=== PATIENT | male | born 1945 | race African-American/Black ===

== ENCOUNTER 2018-12-12 10:57 | Inpatient (IN) ==
--- NOTE | 2018-12-12 11:34 | EKG Report ---
Test Performed on : 12/12/2018 11:20:02 AM Test Reason : TACHYCARDIA SP Blood Pressure : / mmHG Vent. Rate : 108 BPM Atrial Rate : 127 BPM P-R Int : 000 ms QRS Dur : 086 ms QT Int : 354 ms P-R-T Axes : 000 061 216 degrees QTc Int : 474 ms Atrial fibrillation. with rapid ventricular response. with a competing junctional pacemaker. Nonspecific ST and T wave abnormality Abnormal ECG No previous ECGs available Unconfirmed Result
[2018-12-12] MEDS ORDERED: ASPIRIN PR ONE (12:40)
[2018-12-12] MEDS ORDERED: ASPIRIN PO ONE (12:40)
[2018-12-12 13:17] LABS: INR 1.08; PROTIME 14.9 Seconds (11.0-16.0)
[2018-12-12 13:18] LABS: PTT 23.1 Seconds (22.3-41.8)
--- NOTE | 2018-12-12 13:24 | Diag Imaging Result Doc PS360 ---
EXAM: CHEST-2 VIEWS HISTORY: SOB TECHNIQUE: Two views COMPARISON: 12/05/2018 FINDINGS: The lungs are well expanded. The heart is not enlarged. The vessels are not distended. There are no infiltrates. No pleural effusions. IMPRESSION: No acute abnormality. Electronically signed by Gil Thurston 12/12/2018 1:21 PM
[2018-12-12 13:43] LABS: ALB/GLOB RATIO 1.1; ALBUMIN 3.7 g/dL (3.5-5.0); CALCIUM 9.3 mg/dL (8.8-10.2); CREATININE 4.5 mg/dL (0.7-1.2); POTASSIUM 4.2 mmol/L (3.5-5.1); TOTAL BILIRUBIN 1.24 mg/dL (0.20-1.00)
[2018-12-12 14:03] LABS: BASO# 0.02 X1000 (0.0-0.2); BASO% 0.2 % (0.0-0.8); EOS# 0.02 X1000 (0.0-0.7); EOS% 0.2 % (0.0-10.0); HEMATOCRIT 28.7 % (42.0-52.0); HEMOGLOBIN 9.4 g/dL (14.0-18.0); IMM GRAN# 0.03 X1000 (0.0-0.04); IMM GRAN% 0.3 % (0.0-0.5); LYMPH# 1.39 X1000 (1.2-3.4); LYMPH% 12.6 % (20.5-51.1); MCH 30.1 PG (27-31); MCHC 32.8 g/dL (33-37); MONO# 0.83 X1000 (0.11-0.59); MONO% 7.5 % (1.7-9.3); MPV 10.4 FL (7.4-10.4); NEUT# 8.72 X1000 (1.4-6.5); NEUT% 79.2 % (42.2-75.2); PLT 234 X1000 (130-400); RBC 3.12 XMIL (4.7-6.1); RDW 13.6 % (11.5-14.5); WBC 11.01 X1000 (4.8-10.8)
[2018-12-12] MEDS ORDERED: NS 1,000 ML IV ONE (15:46)
--- NOTE | 2018-12-12 15:53 | PROVIDER DOCUMENTATION ---
This chart was entered by Saniya Cosme Scribe, acting as scribe for Deandre Wong MD. HPI-General Adult - General Chief Complaint: Weakness Stated Complaint: WEAKNESS Time Seen by Provider: 12/12/18 11:22 Source: patient Allergies/Adverse Reactions: Patient Allergies Allergy/AdvReac Type Severity Reaction Status Date / Time No Known Allergies Allergy Verified 12/05/18 12:45 - History of Present Illness -Gen Adult Nature of Presenting Problems: Patient is a 73 year old male who presents with weakness, chills, dark urine and frequent falls. Patient denies nausea and vomiting. Denies history of A fib. Location of Pain/Injury: reports: none Pain Radiation: reports: no radiation Quality of Pain: reports: none Severity: reports: mild Onset/Duration: reports: gradual Timing: reports: still present, getting worse Associated Symptoms: reports: fever/chills (chills), genitourinary problems (dark urine), weakness Similar Symptoms Previously?: Yes Recently seen or treated by another doctor?: Yes Review of Systems - Adult - REVIEW OF SYSTEMS - ADULT Constitutional: reports: see HPI, chills. denies: fever, fatique Eyes: reports: no symptoms reported Ears, Nose, Mouth & Throat: reports: no symptoms reported Cardiovascular: reports: no symptoms reported Respiratory: reports: no symptoms reported Gastrointestinal: reports: no symptoms reported Genitourinary: reports: see HPI, other (dark urine). denies: dysuria, incontinence Musculoskeletal: reports: see HPI, muscle weakness. denies: back pain, neck pain Integumentary: reports: no symptoms reported Neurological: reports: no symptoms reported Psychiatric: reports: no symptoms reported Endocrine: reports: no symptoms reported Hematologic/Lymphatic: reports: no symptoms reported Allergic/Immunologic: reports: no symptoms reported All Other Systems: Reviewed and Negative Past History - Adult - PAST MEDICAL HISTORY-ADULT Review of Records: reports: Old Records Reviewed, Nursing Assessment Review, Medications Reviewed, Social history reviewed & non-contributory. Major Childhood Illnesses: reports: denies history Cardiovascular: reports: HTN Respiratory: reports: denies history Gastrointestinal: reports: denies history Obstetrical/Gynecological: reports: denies history Genitourinary: reports: kidney disease Musculoskeletal: reports: arthritis Neurological: reports: denies history Endocrine/Immune: reports: denies history Other Conditions: reports: denies history - PRIOR SURGERIES/PROCEDURES Surgical/Procedure History: reports: reviewed, not pertinent - IMMUNIZATION STATUS Childhood Immunizations: See Nurse Assessment Flu Vaccine: See Nurse Assessment - FAMILY HISTORY Family History: reviewed, not pertinent - SOCIAL HISTORY Smoking: cigarettes (former) Substance Use: alcohol Alcohol Use Frequency: occasionally Physical Exam-General - PHYSICAL EXAM-ADULT Initial Vital Signs Reviewed: Yes - CONSTITUTIONAL General Appearance: alert, no apparent distress, cachetic, other (ill appearing. smells of urine.) - HEAD, EARS, NOSE, MOUTH & THROAT HENMT: normocephalic/atraumatic, other (dry mucous membranes). negative: angioedema, hearing deficit - RESPIRATORY Respiratory: chest non-tender, lungs clear, normal breath sounds. negative: crackles, rhonchi, wheezing - CARDIOVASCULAR Cardiovascular: normal peripheral pulses, irregularly irregular. negative: tachycardia - GASTROINTESTINAL (ABDOMEN) Abdominal Exam: normal bowel sounds, non tender, soft. negative: guarding, rebound - MUSCULOSKELETAL Extremity: non-tender, normal inspection. negative: deformity, erythema, swelling - SKIN Integumentary: normal color, other (poor turgor.). negative: abrasion(s), ecchymosis, erythema, jaundice, rash - NEUROLOGIC Neurologic: grossly normal. negative: aphasia, facial droop - PSYCHIATRIC Psych/Mental Status: normal mood/affect, oriented x 3. negative: anxious Progress - PLAN OF CARE/RESULTS Progress/Plan/Lab Results: Vital Signs - 8 hr 12/12/18 11:01 12/12/18 11:08 12/12/18 11:10 Temperature 97.5 F L Pulse Rate 136 H 75 Respiratory Rate 19 Blood Pressure 111/64 125/84 O2 Sat by Pulse Oximetry 100 88 L 12/12/18 11:13 12/12/18 11:20 12/12/18 11:30 Temperature Pulse Rate 132 H 111 H 85 Respiratory Rate 22 18 23 Blood Pressure 141/98 O2 Sat by Pulse Oximetry 83 L 88 L 100 12/12/18 11:40 12/12/18 11:50 12/12/18 12:00 Temperature Pulse Rate 74 72 66 Respiratory Rate 19 19 18 Blood Pressure O2 Sat by Pulse Oximetry 100 99 100 Laboratory Results - last 24 hr 12/12/18 11:00 POC Glucose 170 H Orders Category Date Time Status EKG [EKG] Stat Ther 12/12/18 11:13 Draft Result Diagrams: 12/12/18 13:54 12/12/18 12:27 - REASSESSMENT Reassessment #1 Time Reassessed: 15:51 Status: other (patient's head CT is pending.) Reassessment #2 Time Reassessed: 15:51 Status: improving (Given IVF) - EKG 1 Time of EKG reading by physician:: 11:20 EKG Read and Signed by:: Deandre Wong EKG Interpretation (*Must complete 3 of following elements*): Abnormal (rhythm - atrial fibrillation with rapid ventricular response with a competing junctional pacemaker) Rate: 108 Rhythm: nsr [place]: normal Comments: nonspecific ST and T wave abnormality. - XRAY 1 XRAY Study: Chest Impression: See EMR Report ( EXAM: CHEST-2 VIEWS HISTORY: SOB TECHNIQUE: Two views COMPARISON: 12/05/2018 FINDINGS: The lungs are well expanded. The heart is not enlarged. The vessels are not distended. There are no infiltrates. No pleural effusions. IMPRESSION: No acute abnormality. Electronically si gned by Gil Thurston 12/12/2018 1:21 PM 12/12/18 1321 Interpreting Physician: Gil Thurston MD Dictated Date/Time: 12/12/18 1321 cc: Deandre Wong MD; Karthik Chao MD) - CONSULTS/PCP/HOSPITALIST Notification #1 *Consult/PCP/Hospitalist*: Dr. Hinton Time Discussed: 15:46 Reason/Comments: Dr. Wong consulted with Dr. Hinton about patient. Consult Disposition: other (Dr. Hinton states give the patient fluids and he will see the patient in the morning.) #2 Consult: JESSICA Marrufo for Hospitalist Time Discussed: 15:50 (Dr. Muniz accepted admit) Reason/Comments: Dr. Wong consulted with Niru about patient. Consult Disposition: Will see in ED, Admit Departure - Departure Date of Disposition Decision: 12/12/18 Time of Disposition Decision: 15:51 DIAGNOSIS: Dehydration syndrome, Frequent falls Acute on chronic renal failure Qualifiers: Acute renal failure type: with acute tubular necrosis Chronic kidney disease stage: stage 3 (moderate) Qualified Code(s): N17.0 - Acute kidney failure with tubular necrosis; N18.3 - Chronic kidney disease, stage 3 (moderate) Disposition: ADMITTED INPATIENT 09 Certified Medical Emergency: Emergent Condition: Serious Referrals and Follow-Ups: Karthik Chao MD [Primary Care Provider] - - Critical Care Note This patient required my direct & personal management of CC.: Yes Total Time (mins): 40 (cvs/renal systems in peril) Critical Care Statement: This patient required my direct personal management to treat or rule out processes, the absence of which, could potentiallly result in sudden, clinically significant life or limb threatening deterioration. Attestation - Physician/ INDERJIT Attestation Patient care was provided by Advanced Practice Provider:: No The physician spent face to face time with patient:: Yes Advanced Practice Provider documentation review:: Supervising physician onsite and consulted in the evaluation and care of this patient. The physician did have a face to face encounter with the patient. This chart was documented by the indicated scribe, (Saniya Cosme Scribe) and accurately reflects the services I performed and decisions made by me, Deandre Wong MD, as attested by the provider's signature.
[2018-12-12 15:54] LABS: ALLEN TEST YES; BE -11.5 mmoll (-3.0-3.0); BLOOD TYPE ARTERIAL; HCO3-(ACT) 15.9 mmoll (20.0-26.0); METHB 1.4 % (0.0-1.5); O2(CT) 18.4 mL/dL (15.0-23.0); O2HB 96.2 % (95.0-99.0); PCO2(98.6) 27 mmHg (35-45); PO2(98.6) 102 mmHg (60-100); SAMPLE BLOOD; SAO2 99.2 % (95.0-100.0); THB 13.5 g/dL (11.5-17.4)
[2018-12-12 16:01] LABS: MODALITY ROOM AIR
[2018-12-12 16:07] LABS: URINE SOURCE CLEAN CATCH
[2018-12-12 16:12] LABS: BILIRUBIN URINE NEGATIVE (NEGATIVE); BLOOD URINE NEGATIVE (NEGATIVE); COLOR YELLOW; GLUCOSE URINE TRACE mg/dL (NEGATIVE); KETONE URINE NEGATIVE (NEGATIVE); PH URINE 5.5; PROTEIN URINE 30 mg/dL (NEGATIVE); SP GRAVITY URINE 1.012; TURBIDITY URINE CLEAR (CLEAR)
[2018-12-12 16:13] LABS: LEUKOCYTES URINE NEGATIVE (NEGATIVE); NITRITE URINE NEGATIVE (NEGATIVE); UROBILINOGEN URINE NORMAL (NORMAL)
[2018-12-12 16:16] LABS: UR EPITHELIAL CELLS <10 /HPF (<10); URINE BACTERIA NEGATIVE /HPF; URINE RBC <10 /HPF (<10); URINE WBC <10 /HPF (<10)
[2018-12-12 16:24] LABS: UR AMPHETAMINES QUAL NONE DETECTED (NONE DETECT); UR BARBITUATES QUAL NONE DETECTED (NONE DETECT); UR BENZODIAZEPIN QUAL NONE DETECTED (NONE DETECT); UR CANNABINOIDS QUAL NONE DETECTED (NONE DETECT); UR COCAINE QUAL NONE DETECTED (NONE DETECT); UR METHADONE QUAL NONE DETECTED (NONE DETECT); UR OPIATES QUAL NONE DETECTED (NONE DETECT); UR OXYCODONE QUAL NONE DETECTED (NONE DETECT); UR PCP QUAL NONE DETECTED (NONE DETECT)
[2018-12-12 16:39] LABS: MAGNESIUM 3.1 mg/dL (1.5-2.7); PHOSPHORUS 5.9 mg/dL (2.7-4.5)
[2018-12-12 16:44] LABS: HEMOGLOBIN A1C 5.6 % (4.8-6.0)
--- NOTE | 2018-12-12 17:03 | Diag Imaging Result Doc PS360 ---
EXAM: CT HEAD W/O CONTRAST HISTORY: ams TECHNIQUE: CT head without contrast COMPARISON: None. FINDINGS: No parenchymal hemorrhage. No epidural or subdural hematoma. No subarachnoid hemorrhage. Mild atrophy. No mass identified on this noncontrasted exam. No hydrocephalus. No sinus opacification. IMPRESSION: 1.No hemorrhage 2.Mild atrophy This exam was performed using automated exposure control, adjustment of mA or kV according to patient size, and/or use of iterative reconstruction technique. Electronically signed by Gil Thurston 12/12/2018 5:01 PM
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
[2018-12-12] MEDS ORDERED: ZOFRAN IV PRN (17:16)
[2018-12-12] MEDS ORDERED: TYLENOL PO PRN (17:16)
[2018-12-12] MEDS ORDERED: SODIUM CHLORIDE 0.9% INJ PRN (17:16)
[2018-12-12 17:58] LABS: HEMATOCRIT 26.8 % (42.0-52.0); HEMOGLOBIN 8.9 g/dL (14.0-18.0)
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
[2018-12-12] MEDS ORDERED: BENADRYL IV PRN (21:08)
[2018-12-12] MEDS: PROTONIX IV SCH (21:46)
[2018-12-13 01:03] LABS: HEMATOCRIT 27.2 % (42.0-52.0)
[2018-12-13 07:22] LABS: BASO# 0.02 X1000 (0.0-0.2); BASO% 0.2 % (0.0-0.8); EOS# 0.15 X1000 (0.0-0.7); EOS% 1.7 % (0.0-10.0); HEMOGLOBIN 9.7 g/dL (14.0-18.0); IMM GRAN# 0.03 X1000 (0.0-0.04); IMM GRAN% 0.3 % (0.0-0.5); LYMPH# 1.54 X1000 (1.2-3.4); LYMPH% 17.3 % (20.5-51.1); MCHC 33.4 g/dL (33-37); MCV 92.7 FL (81-99); MONO# 0.68 X1000 (0.11-0.59); MONO% 7.6 % (1.7-9.3); MPV 11.1 FL (7.4-10.4); NEUT# 6.48 X1000 (1.4-6.5); NEUT% 72.9 % (42.2-75.2); PLT 233 X1000 (130-400); RBC 3.13 XMIL (4.7-6.1); RDW 13.7 % (11.5-14.5)
[2018-12-13 07:50] LABS: ALBUMIN 3.6 g/dL (3.5-5.0); CALCIUM 9.7 mg/dL (8.8-10.2); CREATININE 4.2 mg/dL (0.7-1.2); POTASSIUM 3.7 mmol/L (3.5-5.1); TOTAL BILIRUBIN 1.17 mg/dL (0.20-1.00); TOTAL PROTEIN 7.3 g/dL (6.3-8.3)
[2018-12-13] MEDS: PROTONIX IV SCH ×2 (08:41→20:45)
[2018-12-13] MEDS ORDERED: 1/2 NS 1,000 ML IV SCH (11:00)
[2018-12-13] MEDS: LOPRESSOR PO SCH ×2 (11:11→20:43)
[2018-12-13] MEDS ORDERED: D5 IV SCH (12:30)
[2018-12-13] MEDS ORDERED: 1/2 NS IV SCH (12:30)
[2018-12-13] MEDS ORDERED: SODIUM BICARBONATE IV SCH (12:30)
[2018-12-13] MEDS: SODIUM BICARBONATE 8.4% 100 MEQ in D5W 1,000 ML IV SCH (12:44)
--- NOTE | 2018-12-13 14:37 | PROGRESS NOTE ---
DATE: 12/13/2018 INTERVAL HISTORY: Patient received intravenous fluid resuscitation. He has not had a bowel movement. He continues to have poor kidney function. His hemoglobin was stable. SUBJECTIVE: The patient is feeling significantly weak. He has been taking ibuprofen 3 tablets 3 times a day for last 2 weeks because of his osteoarthritis and has noticed melena of about 2 weeks duration. 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 He has had EGD and colonoscopies in the past which were unremarkable and he was supposed to get repeat endoscopies 10 years later. We discussed about exam findings possibly NSAID induced kidney injury as well as GI bleed. Answered all of his questions. His family is at bedside. CURRENTLY VITALS: Temperature 98.6 degrees, pulse 92, respiratory 16, blood pressure 158/58, saturating 100% room air. PHYSICAL EXAMINATION: Appears cachectic. Oral cavity is dry. Air entry bilaterally equal. No wheeze, rhonchi, crackles. S1, S2 normal. No murmur, rub, or gallop. Bedside monitor has normal sinus rhythm with heart rate in 90s. Abdomen is soft, nontender. No lower extremity edema. He appears tremulous both upper and lower extremities. He does mention about 30-40 pound weight loss over 3 to 4 months. LABS: Suggestive of stable hemoglobin at 10.7, stable platelet count, hypernatremia, hyperchloremia, low bicarbonate, elevated BUN and creatinine with baseline unclear and transaminitis with slight improvement. No new microbiological data. IMAGING: Chest, abdomen, pelvis CT had sternal fracture without any injury identification without any retroperitoneal hematoma. ASSESSMENT AND PLAN: 1. 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 Continue intravenous Protonix. Follow up fecal occult blood test if he has a bowel movement and consult Gastroenterology to see if he would eventually need EGD. Continue NPO status until Gastroenterology evaluation. Monitor frequent blood count. No need of blood transfusion at the moment. 2. Elevated anion gap metabolic acidosis with hypernatremia and hyperchloremia after intravenous fluid resuscitation with CKD (baseline GFR 30). Start patient on D5 half- normal saline with 100 mEq of bicarbonate. Nephrology has been consulted. Follow up with frequent BMP and close urine output monitoring. 3. Transaminitis with improvement over 24 hours. His baseline liver function tests are not available. Continue to monitor CMP. In the future would consider hepatitis panel though he denies any recreational substance use or prior history of known hepatitis. 4. Atrial fibrillation with rapid ventricular rate on presentation. It is possible that his renal failure possibly acute and a metabolic derangement resulting from that could have triggered it. His CHADS2-VASc score is at least 3 because of age and HTN. I will start him on metoprolol and will consider anticoagulation in future currently holding off considering his suspected acute blood loss. Follow up repeat EKG. 5. Disposition. I will continue monitor his medical floor. Plan of care discussed with patient and family at bedside. All of the questions been answered. cc: Marcelino Bhandari MD MTDD
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
[2018-12-14] MEDS: SODIUM BICARBONATE 8.4% 100 MEQ in D5W 1,000 ML IV SCH ×2 (03:11→23:29)
[2018-12-14 07:18] LABS: BASO# 0.01 X1000 (0.0-0.2); BASO% 0.2 % (0.0-0.8); EOS# 0.16 X1000 (0.0-0.7); EOS% 2.5 % (0.0-10.0); HEMATOCRIT 25.9 % (42.0-52.0); HEMOGLOBIN 8.7 g/dL (14.0-18.0); IMM GRAN# 0.02 X1000 (0.0-0.04); IMM GRAN% 0.3 % (0.0-0.5); LYMPH# 1.12 X1000 (1.2-3.4); LYMPH% 17.7 % (20.5-51.1); MCH 30.5 PG (27-31); MCHC 33.6 g/dL (33-37); MCV 90.9 FL (81-99); MONO# 0.61 X1000 (0.11-0.59); MONO% 9.7 % (1.7-9.3); MPV 11.5 FL (7.4-10.4); NEUT% 69.6 % (42.2-75.2); PLT 224 X1000 (130-400); RBC 2.85 XMIL (4.7-6.1); RDW 13.1 % (11.5-14.5); WBC 6.32 X1000 (4.8-10.8)
[2018-12-14 07:21] LABS: ALB/GLOB RATIO 0.9; ALBUMIN 3.1 g/dL (3.5-5.0); CALCIUM 8.8 mg/dL (8.8-10.2); CREATININE 3.3 mg/dL (0.7-1.2); POTASSIUM 4.1 mmol/L (3.5-5.1); TOTAL BILIRUBIN 0.98 mg/dL (0.20-1.00); TOTAL PROTEIN 6.6 g/dL (6.3-8.3)
--- NOTE | 2018-12-14 09:26 | ECHO REPORT ---
ORDER DATE: 12/13/2018 SUMMARY: 1. Very difficult study for interpretation due to very limited acoustic window quality. Best views obtained from subcostal window. 2. The aortic, mitral, and tricuspid valves are without gross structural abnormality. Pulmonic valve is not seen. The aortic root is not well imaged. 3. Grossly normal left ventricular dimensions suggested. Estimated left ventricular ejection fraction appears to be at least 70%. No obvious wall motion abnormality can be appreciated. Left atrium, right atrium, and right ventricle are grossly normal in size. 4. No pericardial effusion. 5. Appearance of inferior vena cava suggests low normal central venous pressure. cc: MD Niru Gar CRNP
[2018-12-14 09:48] LABS: RETIC% 1.34 % (0.8-2.1); RETIC-HE 31.8 PG (28.2-36.6)
[2018-12-14] MEDS: PROTONIX PO SCH ×2 (10:02→21:14)
[2018-12-14] MEDS: LOPRESSOR PO SCH ×2 (10:02→21:27)
[2018-12-14 10:06] LABS: IRON SATURATION 25 %; TIBC 185 ug/dL; TOTAL IRON 46 ug/dL (53-167); UNBOUND IRON 139 ug/dL (112-346)
[2018-12-14 10:34] LABS: FERRITIN 692 ng/mL (30-400)
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
--- NOTE | 2018-12-14 12:52 | PROGRESS NOTE ---
DATE: 12/14/2018 SUBJECTIVE: Patient notes that he is feeling okay. Denies any chest pain, palpitations. Denies any current issues. PHYSICAL EXAMINATION: Vital Signs: Temperature 97.5, pulse 61, respiratory rate 18, BP 126/56. General: Patient is stable. He is awake, alert. He is pleasant to talk with. HEENT: Normocephalic. Neck: Supple. Cardiovascular: Regular rate. Chest: Clear. Abdomen: Soft, nondistended. Extremities: Moves all extremities. Neurologic: No changes. ASSESSMENT: 1. Anemia. Hemoglobin and hematocrit are stable at 8 and 25. 2. Atrial fibrillation, currently stable. 3. Acute on chronic kidney disease. The patient's renal function has actually improved slightly with a BUN and creatinine down to 132 and 3.2. Nephrology is on board. We will continue bicarb today and we will continue to assess. PLAN: Overall, the patient has improved slightly. His hemoglobin and hematocrit have remained stable. Again, discussed with patient no NSAIDs. We will recheck his labs in the a.m. Discussed with patient and attempted to answer questions. cc: Karthik Chao MD
--- NOTE | 2018-12-14 15:02 | Diag Imaging Result Doc PS360 ---
EXAM: US ABDOMEN-COMPLETE - 12/14/2018 HISTORY: abnormal LFTs TECHNIQUE: Ultrasound abdomen COMPARISON: None. FINDINGS: The liver appears diffusely echodense suggesting fatty infiltration. There is no focal liver lesion identified. The spleen is unremarkable. There is no substantial ascites seen. There are apparent small polyps in the gallbladder. The gallbladder soto otherwise do not appear thickened. There are no discrete shadowing or mobile gallstones identified. The technologist reports negative sonographic Gallego's sign. The common bile duct is normal caliber at 2 mm. The pancreas is not well-visualized, presumably due to artifacts. There are small bilateral renal cysts. There is no discrete solid renal mass, stone, or hydronephrosis identified. Visualized portions of aorta and IVC appear normal caliber. IMPRESSION: Apparent fatty infiltration of liver. No evidence of focal liver lesion. Apparent small gallbladder polyps. No discrete gallstones. Bilateral renal cysts. Electronically signed by Geovanni Brito 12/14/2018 2:59 PM
--- NOTE | 2018-12-15 07:28 | EKG Report ---
Test Performed on : 12/13/2018 12:59:14 PM Test Reason : Follow up A FIb Blood Pressure : / mmHG Vent. Rate : 097 BPM Atrial Rate : 097 BPM P-R Int : 126 ms QRS Dur : 072 ms QT Int : 370 ms P-R-T Axes : 057 059 096 degrees QTc Int : 469 ms Sinus rhythm. with occasional premature ventricular complexes. Nonspecific T wave abnormality Abnormal ECG When compared with ECG of 12-DEC-2018 11:20, (Unconfirmed) Sinus rhythm. has replaced Atrial fibrillation. ST elevation now present in Inferior leads Nonspecific T wave abnormality no longer evident in Inferior leads Confirmed by Adore MARCELINO, Hayden Contreras ([id number]) on 12/15/2018 5:05:40 PM
[2018-12-15 07:47] LABS: POTASSIUM 3.3 mmol/L (3.5-5.1)
[2018-12-15 07:48] LABS: ALBUMIN 3.2 g/dL (3.5-5.0); CALCIUM 8.9 mg/dL (8.8-10.2); CREATININE 2.7 mg/dL (0.7-1.2); PHOSPHORUS 4.3 mg/dL (2.7-4.5)
[2018-12-15 09:09] LABS: HEPATITIS PROFILE ACUTE SEE COMMENTS
[2018-12-15] MEDS ORDERED: DIPRIVAN 1% ONE ×2 (10:10→11:18)
[2018-12-15] MEDS ORDERED: XYLOCAINE-MPF 2% ONE (10:10)
[2018-12-15] MEDS ORDERED: KLOR-CON PO ONE ×2 (10:11→10:23)
--- NOTE | 2018-12-15 11:02 | NEPHROLOGY PROGRESS NOTE ---
DATE: 12/15/2018 Date Seen: 12/15/2018. Time Seen: 0625. SUBJECTIVE: Mr. Santos is resting quietly in bed. Head of the bed is slightly elevated. He states that he is feeling just a little bit better today. OBJECTIVE: Vital Signs: His last temperature 98.8 degrees, blood pressure 130/58, heart rate is 75, respirations are 14. He is currently on room air. Last recorded saturation is 100%. He has had 223 in. He has had 1475 out per void. LABORATORY DATA: Sodium 143, potassium 3.3, chloride 102, CO2 27, BUN 112, creatinine 2.7, glucose 133. Anion gap of 14, calcium 8.9, phosphorus 4.3, albumin is 3.2. Hemoglobin of 8.7 on the . Hepatitis profile panel is negative. PHYSICAL EXAMINATION: General: This is a 73-year-old male who is resting quietly in bed. He appears in no acute distress. Skin: Warm and dry. HEENT: Normocephalic, atraumatic. Conjunctiva is pale he has RADHA. Mucous membranes are dry. Neck: Supple. Trachea midline. He has trace JVD at 6 cm lukas. Cardiovascular: Regular rate and rhythm. He has an S4 present. Lungs: Clear to auscultation bilaterally. Equal excursion on room air. Abdomen: Soft nontender. Slightly distended. Positive bowel sounds. Genitourinary: Not inspected. Patient has voided adequate amounts. It has been recorded. Extremities: Have no edema. No clubbing or cyanosis. Neurological: He is in no acute distress. Alert and oriented x3. ASSESSMENT AND PLAN: 1. Acute kidney injury overlying chronic kidney disease. Patient's baseline creatinine is in the mid 2s. His creatinine is down to 2.7. BUN remains elevated at 112. At this time there is no indications for intervention. Adequate urine output is documented. We will continue to monitor and follow. 2. Electrolytes and acid-base balance. Patient has mild hypokalemia. He has been on D5 with sodium bicarbonate at 75 mL an hour. We will give him a one-time dose potassium supplement replacement and monitor in the a.m. 3. Acid-base balance this has improved. We will leave the sodium bicarbonate on for 1 more day and possibly take it off in the morning. 4. Anemia, this remains low but stable. Hemoglobin of 8.7. No indications for intervention. 5. Atrial fibrillation with rapid ventricular response. The patient is being followed by the primary care team. I would like to thank you for allowing us to follow with this patient. Dictated by JESSICA Caraballo for Idris Hinton MD Face to face encounter, data reviewed, discussed with Gayla Saucedo on 12/15/18. I agree with the above assessment and plan of care. cc: JESSICA Caraballo MD [facility]
[2018-12-15] MEDS ORDERED: FENTANYL ONE (11:35)
--- NOTE | 2018-12-15 12:14 | OPERATIVE NOTE ---
PROCEDURE DATE: 12/15/2018 TITLE OF PROCEDURES: 1. Esophagogastroscopy with cautery of the duodenal ulcer. 2. Esophagogastroduodenoscopy with dilation of the Schatzki's ring with a 42- Burkinan Rico dilator. PREOPERATIVE DIAGNOSES: 1. Gastrointestinal bleed. 2. Melena. 3. Anemia. POSTOPERATIVE DIAGNOSES: 1. Schatzki's ring at the gastroesophageal junction. 2. Z-line was at 45 cm. 3. Evidence of erythema in the gastric body and antrum. 4. Normal fundus, cardia, incisura on retroflexion. 5. Evidence of duodenitis and duodenal ulcer in the bulb measuring 1 to 2 cm. It had a visible vessel. This was treated with epinephrine 1.5 mL in different quadrants and cautery. 6. Normal second portion of the duodenum. ESTIMATED BLOOD LOSS: Minimal. COMPLICATIONS: None. ANESTHESIA: Monitored anesthesia per the anesthesiologist. SPECIMENS: None. DESCRIPTION OF PROCEDURE: After informed consent, the patient was explained the risks, benefits, indications, and alternatives to the procedure, the patient prepared for an EGD. The patient was brought to the OR. He was turned in the left lateral position. A bite block was placed. After adequate monitored anesthesia care, the upper scope was introduced was introduced through the oral orifice and traversed all the way to the second portion of the duodenum. The esophagus showed evidence of a Schatzki's ring at the gastroesophageal junction. Z-line was at 45 cm. The scope was able to pass without any resistance. Stomach showed evidence of erythema in the body and antrum suggesting gastritis. Retroflexion in the stomach revealed normal fundus, cardia, incisura. The duodenal bulb showed evidence of erythema, friability, erosions, and one ulceration in the anterior wall of the duodenal bulb. This measured about 1 to 2 cm. It had a visible vessel. We treated it with epinephrine in different quadrants, followed by cautery successfully. The second portion of the duodenum appeared normal. There was no active bleeding. At the end the procedure, the air was aspirated and scope withdrawn. The patient underwent Rico dilation to a 42-Burkinan successfully. Postdilation, repeat EGD showed successful dilation. The air was aspirated and the scope was withdrawn. The patient tolerated the procedure well and is currently monitored in the OR in stable condition. RECOMMENDATIONS: 1. The patient will be on gastroesophageal reflux life changes. 2. Patient will avoid any NSAIDs. 3. Patient will be on PPIs b.i.d. for 3 months. Start him on Carafate 1 g every 6 hours. 4. The patient will be on Iron C b.i.d. for 3 months. We will start patient on multivitamin once daily with 3 months. The patient will be started on a clear liquid diet and advance as tolerated. 5. The patient will follow up in clinic 4 weeks after discharge. 6. We will follow along. Please call us with any further questions. Thank you for allowing us to participate in the care of the patient. cc: MD Reddy Garcia MD MTDD
--- NOTE | 2018-12-15 15:12 | PROGRESS NOTE ---
DATE: 12/15/2018 SUBJECTIVE: Patient has no major complaints. OBJECTIVE: Blood pressure is 151/71, heart rate of 81, respiratory rate 18, temperature 97.9 degrees, 100% saturation on room air.Cardiovascular: Regular rate and rhythm. Pulmonary: Bilateral breath sounds clear to auscultation. GI: Soft, nontender, nondistended. Bowel sounds are positive. LABORATORY DATA: White count I do not have any new data today. Creatinine down to 2.7 with a BUN of 112. PROBLEM LIST: 1. Acute kidney injury. We will continue hydration. Nephrology is still following. He continues to have improvement in his azotemia but he still fairly azotemic. 2. Hemoglobin and hematocrit has been stable, will repeat levels tomorrow and follow. He is getting a GI workup with EGD. 3. Atrial fibrillation appears to be rate controlled. DISPOSITION: Anticipate discharge soon. Patient would like to go home soon. I just do not think he is quite ready just yet and may still be another day or 2 away but will continue to follow. cc: Reddy Gomes MD
[2018-12-15] MEDS: LOPRESSOR PO SCH ×2 (15:29→20:17)
[2018-12-15] MEDS: PROTONIX PO SCH ×2 (15:30→20:17)
[2018-12-15] MEDS: CARAFATE PO SCH ×2 (15:52→18:48)
[2018-12-15] MEDS: SODIUM BICARBONATE 8.4% 100 MEQ in D5W 1,000 ML IV SCH (16:08)
[2018-12-15] MEDS: POTASSIUM CHLORIDE 20 MEQ/SWI 20 MEQ/100 ML IVPB IV SCH ×2 (18:48→22:38)
[2018-12-15] MEDS: ICAR-C PO SCH (20:17)
[2018-12-16] MEDS: CARAFATE PO SCH ×4 (00:58→17:28)
[2018-12-16] MEDS: SODIUM BICARBONATE 8.4% 100 MEQ in D5W 1,000 ML IV SCH (02:57)
[2018-12-16 08:00] LABS: BASO# 0.01 X1000 (0.0-0.2); BASO% 0.2 % (0.0-0.8); EOS# 0.16 X1000 (0.0-0.7); EOS% 2.5 % (0.0-10.0); HEMATOCRIT 24.4 % (42.0-52.0); IMM GRAN# 0.02 X1000 (0.0-0.04); IMM GRAN% 0.3 % (0.0-0.5); LYMPH# 1.23 X1000 (1.2-3.4); LYMPH% 19.6 % (20.5-51.1); MCH 30.2 PG (27-31); MCHC 32.8 g/dL (33-37); MCV 92.1 FL (81-99); MONO# 0.91 X1000 (0.11-0.59); MONO% 14.5 % (1.7-9.3); MPV 11.4 FL (7.4-10.4); NEUT# 3.96 X1000 (1.4-6.5); NEUT% 62.9 % (42.2-75.2); PLT 200 X1000 (130-400); RBC 2.65 XMIL (4.7-6.1); RDW 12.6 % (11.5-14.5); WBC 6.29 X1000 (4.8-10.8)
[2018-12-16 08:16] LABS: ALBUMIN 2.7 g/dL (3.5-5.0); CALCIUM 8.3 mg/dL (8.8-10.2); CREATININE 2.1 mg/dL (0.7-1.2); PHOSPHORUS 3.1 mg/dL (2.7-4.5); POTASSIUM 2.8 mmol/L (3.5-5.1)
[2018-12-16] MEDS: PROTONIX PO SCH ×2 (08:41→20:22)
[2018-12-16] MEDS: ICAR-C PO SCH ×2 (08:41→20:22)
[2018-12-16] MEDS: LOPRESSOR PO SCH ×2 (08:41→20:22)
[2018-12-16] MEDS: CENTRUM SILVER PO SCH (08:41)
--- NOTE | 2018-12-16 09:22 | NEPHROLOGY PROGRESS NOTE ---
DATE: 12/16/2018 Date Seen: 12/16/2018 Time Seen: 0635 SUBJECTIVE: Mr. Santos is resting quietly in bed. He had an EGD performed yesterday. States that he is feeling a little bit better. OBJECTIVE: Vital Signs: Temperature 99.1 degrees, blood pressure 140/57, heart rate 81 respirations 14. He is on room air. Last recorded saturation 96%. He has had 600 in, 850 out to void. LABS: Sodium is 145, potassium 2.8, chloride 103, CO2 32, BUN 70, creatinine 2.1 glucose is 126. The patient has an anion gap of 10, calcium of 8.3 phosphorus 3.1, albumin of 2.7 previous hemoglobin of 8. PHYSICAL EXAMINATION: General: This is a 73-year-old male resting quietly in bed. Head of the bed is elevated. He appears in no acute distress. Skin: Warm and dry. HEENT: Normocephalic, atraumatic. Conjunctiva is pale pink. He has RADHA. Mucous membranes are dry. Neck: Supple, trachea midline. No evidence of JVD. Cardiovascular: He is regular rate and rhythm. S4 is present. Lungs: Clear to auscultation bilaterally. Equal excursion on room air. Abdomen: Soft, nontender, positive bowel sounds. Genitourinary: Not inspected. Patient has been voiding adequate amount that has been documented. Extremities: Have no edema. No clubbing or cyanosis. Neurological: He is alert and oriented x3. ASSESSMENT AND PLAN: 1. Acute kidney injury. Patient's BUN has improved to 70 with a creatinine of 2.1 down from 2.7. Adequate urine output has been documented. No indications for intervention. We will continue to monitor. 2. Electrolytes. Patient has a hypokalemia of 2.8 and an acid-base balance of 32. We will stop his sodium bicarbonate drip. We will add 40 mEq of K-Chlor today, 1 tablet BID only and re- evaluate his labs in the a.m. 3. Anemia. This remains low but stable. 4. Atrial fibrillation with rapid ventricular response. This remains improved followed by primary care. 5. Abdominal discomfort. This is followed by Dr. Cook. Patient had an EGD yesterday showing Schatzki's ring along with duodenitis. I would like to thank you for allowing us to follow with this patient. Dictated by JESSICA Caraballo for Idris Hinton MD Face to face encounter, data reviewed, discussed with Gayla Saucedo on 12/16/18. I agree with the above assessment and plan of care. cc: JESSICA Caraballo MD [facility]
[2018-12-16] MEDS: KLOR-CON PO SCH ×2 (10:34→20:22)
[2018-12-16] MEDS ORDERED: NS 1,000 ML IV ONE (15:26)
--- NOTE | 2018-12-16 15:45 | PROGRESS NOTE ---
DATE: 12/16/2018 SUBJECTIVE: Patient is doing well. No major complaints. He really wants to go home. OBJECTIVE: Vital Signs: Blood pressure is 134/51, heart rate of 79, respiratory rate of 18, temperature 97.8 degrees, satting 97% on room air. Cardiovascular: Regular rate and rhythm. Pulmonary: Bilateral breath sounds. Clear to auscultation. GI: Soft, nontender, nondistended. Bowel sounds are positive. LABORATORY DATA: Potassium 2.8, creatinine 2.1. PROBLEM LIST: 1. Acute kidney injury. I think he still needs a little bit of hydration. I do not know if it was stopped because his fluids were stopped. I do not know. I am going to give him another bag of fluids just to hydrate him up a bit. 2. Anemia that appears to be stable. We will continue to monitor. 3. He had some gastroesophageal reflux disease/gastritis. So we will continue proton pump inhibitor and follow. 4. Atrial fibrillation is stable. DISPOSITION: Anticipate discharge soon, hopefully in the next 24 hours. Continue to follow closely. cc: Reddy Gomes MD
--- NOTE | 2018-12-16 23:34 | PROVIDER PROGRESS NOTE ---
Progress Note SUBJECTIVE: No acute overnight events. Afebrile. No N/V, CP, SOB, abdominal pain, rectal bleeding, LE edema. He reports having a couple of melenic stools since yesterday. Tolerating clears OBJECTIVE: Last Vital Signs Temp 99.3 F 12/16/18 23:23 Pulse 86 12/16/18 20:00 Resp 16 12/16/18 20:00 BP 152/48 12/16/18 20:00 Pulse Ox 100 12/16/18 20:00 Height 5 ft 7 in Weight 131 lb 6.4 oz GEN: awake, alert, NAD HEENT: anicteric, MMM NECK: supple, no JVD PULM: CTAB, no wheezing CV: RRR, no murmurs ABD: soft NT/ND, NABS EXT: no cce NEURO: nonfocal LABS: 12/16/18 12/16/18 07:15 07:15 WBC 6.29 Hgb 8.0 L Plt Count 200 Sodium 145 Potassium 2.8 L D Chloride 103 Carbon Dioxide 32 BUN 70 H Creatinine 2.1 H Glucose 126 H EGD 12/15/2018 POSTOPERATIVE DIAGNOSES: 1. Schatzki's ring at the gastroesophageal junction. 2. Z-line was at 45 cm. 3. Evidence of erythema in the gastric body and antrum. 4. Normal fundus, cardia, incisura on retroflexion. 5. Evidence of duodenitis and duodenal ulcer in the bulb measuring 1 to 2 cm. It had a visible vessel. This was treated with epinephrine 1.5 mL in different quadrants and cautery. 6. Normal second portion of the duodenum. A/P: Mr. Clay Santos is a 73-year-old gentleman with hypertension and chronic kidney disease, who was admitted after having a fall, found to have acute onset anemia JUAN on CKD, AFIB with RVR in the setting of UGIB from duodenal ulcer 2/2 to NSAID use. EGD on 12/15 showed Schatzki's ring (dilated), gastritis, duodenitis, and duodenal ulcer with visible vessel treated with epinephrine and cautery. # UGIB: 2/2 bleeding duodenal ulcer - advance diet as tolerated - continue PPI PO BID for 3 months - avoid NSAIDs - no indication for repeat EGD to check for duodenal ulcer healing 2/2 to no malignancy potential # Gastritis/Duodenitis: from above # Schatzki's ring: s/p dilation; no dysphagia; repeat EGD prn # Anemia: trend H/H daily, transfuse prn for goal hgb 7-8 # Abnormal LFTs: 2/2 to fatty liver; chronic liver disease workup negative; minimize ETOH # JUAN on CKD: improved # AFIB with RVR: on admission noted # Hypokalemia: replete lytes prn Will sign off. Please call with questions. Follow-up with Dr. Barragan in 4-6 weeks.
[2018-12-17] MEDS: ICAR-C PO SCH (08:58)
[2018-12-17] MEDS: PROTONIX PO SCH (08:58)
[2018-12-17] MEDS: CENTRUM SILVER PO SCH (08:58)
[2018-12-17] MEDS: LOPRESSOR PO SCH (08:58)
--- NOTE | 2018-12-17 10:28 | NEPHROLOGY PROGRESS NOTE ---
DATE: 12/17/2018 DATE AND TIME SEEN: 12/17/2018 at 0630. SUBJECTIVE: Mr. Santos is resting quietly in bed. States that he is feeling a little bit better. Thinks he might be discharged today. OBJECTIVE: MOST RECENT VITAL SIGNS: Temperature 98.7 degrees, blood pressure 122/97, heart rate is 90, respirations 12. He is on room air, last recorded saturation is 94%. He has had 3941 in, 2225 out to void. LABORATORY DATA: These are currently pending. No results back. His potassium yesterday was 2.8 with potassium supplement x2 doses. BUN of 70 with a creatinine of 2.1, and a hemoglobin of 8 on the . PHYSICAL EXAMINATION: General: This is a 73-year-old male, resting quietly in bed. His skin is warm and dry. HEENT: Normocephalic, atraumatic. Conjunctiva is pale. He has RADHA. Mucous membranes are dry. Neck: Supple. Trachea midline. No evidence of JVD. Cardiovascular: Regular rate and rhythm. He has an S4. Lungs: Clear to auscultation bilaterally, equal excursion, on room air. Abdomen: Soft, nontender. Positive bowel sounds. Genitourinary: Not inspected. Patient has been voiding adequate amount that has been documented. Extremities: Have no edema. No clubbing or cyanosis. Neurological: Alert and oriented x3. ASSESSMENT AND PLAN: 1. Acute kidney injury on chronic kidney disease. Patient's creatinine is actually at his baseline in the 2s. No indications for further intervention. He has adequate urine output documented. We will just await labs today and continue to monitor. 2. Electrolytes. The patient had hypokalemia yesterday. Labs are currently pending this a.m. 3. Anemia. This has been low but stable. 4. Atrial fibrillation with rapid ventricular response. This is improved. Followed by primary care. 5. Abdominal discomfort. No further gastrointestinal bleed. Followed by Gastroenterology and primary care. I would like to thank you for allowing us to follow with this patient. Dictated by JESSICA Caraballo for Idris Hinton MD Face to face encounter, data reviewed, discussed with Gayla Saucedo on 12/17/18. I agree with the above assessment and plan of care. cc: JESSICA Caraballo MD [facility]
[2018-12-17 11:37] LABS: ALBUMIN 2.7 g/dL (3.5-5.0); CALCIUM 8.1 mg/dL (8.8-10.2); CREATININE 2.2 mg/dL (0.7-1.2); PHOSPHORUS 2.4 mg/dL (2.7-4.5); POTASSIUM 3.3 mmol/L (3.5-5.1)
[2018-12-17] MEDS ORDERED: SODIUM PHOSPHATE 40 MEQ in NS 250 ML IV ONE (15:01)
[2018-12-17 16:32] VITALS: BP 136/67
--- NOTE | 2018-12-18 06:57 | DISCHARGE SUMMARY ---
ADMISSION DATE: 12/12/2018 DISCHARGE DATE: 12/17/2018 SUBJECTIVE: The patient has no major complaints. OBJECTIVE: Blood pressure 116/48, heart rate of 76, respiratory rate of 16, temperature 98.9 degrees and 100% on room air. Cardiovascular: Regular rate and rhythm. Pulmonary: Bilateral breath sounds clear to auscultation. GI: Soft, nontender, and nondistended. Bowel sounds are positive. LABORATORY: White count not done today. Potassium 3.3, creatinine down to 2.2. Per Renal, that is close to his baseline. HISTORY: He was admitted for melena and a GI bleed on the . Gastroenterology was consulted. His initial hemoglobin and hematocrit was 9 and 28. His initial creatinine was 4.5, and elevated liver enzymes. He was placed on some PPI. CT was ordered which really showed nothing except the sternal fracture. Head CT is negative. His abdominal ultrasound showed small gallbladder polyps. In any case, echocardiogram was obtained. EF was 70%. Nephrology was consulted because of renal failure, and he was given fluids. He was on a bicarbonate, but I do not think he ended up getting dialysis. He was placed on Protonix. EGD was done on the which showed Schatzki's ring, duodenitis and duodenal ulcer with visible vessel. It was injected with epinephrine. Recommended PPIs, Carafate and no NSAIDs. His diet was slowly advanced. His creatinine slowly improved. He had some atrial fibrillation which also overall improved. By the , his creatinine was at baseline. Hemoglobin and hematocrit was around 8 and 24 which has not much changed, that was on the from the . He was felt stable for discharge. DISCHARGE MEDICATIONS: 1. Clonidine 0.1 b.i.d. 2. Felodipine 5 daily. 3. Lopressor 25 b.i.d. 4. Icar C daily. 5. Prilosec 40 b.i.d. for 2 months. 6. Carafate 1 g t.i.d. at bedtime for 6 weeks. FOLLOW UP: 1. PCP in 1 week for repeat CBC and basic. 2. He is to her follow up with Dr. Cook in a couple of weeks to look at biopsies. 3. Follow up with Dr. Hinton 1 to 2 weeks. Follow up on his kidneys. TIME SPENT: 32 minute discharge. Refer to Joey Chery and Mary Jane. cc: Reddy Gomes MD
== END 2018-12-17 19:33 | disposition home or self-care (01) | DRG 378 ==
LOC: EDBD → ED 10:57 → 3N 16:36 → SUATTDRO 16:36
PROVIDERS: ATTEND Internal Medicine

== ENCOUNTER 2018-12-25 13:06 | Inpatient (IN) ==
[2018-12-25 14:08] LABS: BASO# 0.02 X1000 (0.0-0.2); BASO% 0.4 % (0.0-0.8); EOS# 0.24 X1000 (0.0-0.7); EOS% 4.7 % (0.0-10.0); HEMATOCRIT 20.5 % (42.0-52.0); HEMOGLOBIN 6.6 g/dL (14.0-18.0); LYMPH# 1.16 X1000 (1.2-3.4); LYMPH% 22.6 % (20.5-51.1); MCH 30.3 PG (27-31); MCHC 32.2 g/dL (33-37); MONO# 0.86 X1000 (0.11-0.59); MONO% 16.8 % (1.7-9.3); MPV 10.2 FL (7.4-10.4); NEUT# 2.85 X1000 (1.4-6.5); NEUT% 55.5 % (42.2-75.2); PLT 274 X1000 (130-400); RBC 2.18 XMIL (4.7-6.1); RDW 12.6 % (11.5-14.5); WBC 5.13 X1000 (4.8-10.8)
[2018-12-25] MEDS: NS 1,000 ML IV SCH ×2 (14:11→21:47)
[2018-12-25 14:13] LABS: INR 1.11; PROTIME 15.2 Seconds (11.0-16.0)
[2018-12-25 14:14] LABS: PTT 31.2 Seconds (22.3-41.8)
[2018-12-25 14:35] LABS: ALB/GLOB RATIO 1.1; ALBUMIN 3.2 g/dL (3.5-5.0); CALCIUM 8.8 mg/dL (8.8-10.2); CREATININE 2.8 mg/dL (0.7-1.2); POTASSIUM 3.3 mmol/L (3.5-5.1); TOTAL BILIRUBIN 0.52 mg/dL (0.20-1.00); TOTAL PROTEIN 6.2 g/dL (6.3-8.3)
--- NOTE | 2018-12-25 16:17 | PROVIDER DOCUMENTATION ---
This chart was entered by Ying Lundberg Scribe, acting as scribe for Felipe Esquivel MD. HPI-Abdominal Pain/GI Problem - General Chief Complaint: Abnormal Lab[s] Stated Complaint: ABNORMAL LAB[S] Time Seen by Provider: 12/25/18 13:30 Source: patient, other (PCP) Allergies/Adverse Reactions: Patient Allergies Allergy/AdvReac Type Severity Reaction Status Date / Time No Known Allergies Allergy Verified 12/05/18 12:45 Home Medications: Home Medication List Medication Instructions Recorded Confirmed Last Taken Type Clonidine [Catapres] 0.1 mg PO BID 12/13/18 12/13/18 Unknown History Felodipine [Felodipine ER] 5 mg PO DAILY 12/13/18 12/13/18 Unknown History Metoprolol [Lopressor] 25 mg PO BID 12/13/18 12/13/18 Unknown History Iron Carbonyl/Ascorbic Acid 1 ea PO DAILY #30 tab 12/17/18 Unknown Rx [Icar-C] Omeprazole [Prilosec] 40 mg PO BID #60 capsule. 12/17/18 Unknown Rx Sucralfate [Carafate Liquid] 1 gm PO Q6HR #120 udc 12/17/18 Unknown Rx - History of Present Illness-ABD Nature of Presenting Problems: 73 y/o male presents to ED with hematemesis. Pt reports he has hx peptic ulcer and recent GI bleed. Pt was admitted for the bleed on 12/12/18 and had an EGD on 12/15/18. Pt states the black stools have not subsided since his prior bleed. Pt reports he takes iron supplements. Pt also complains of back pain that is worse with movement and fatigue. Pt was seen by PCP yesterday for followup from prior bleed and sent to ED today after lab results came back. PCP reports Hgb of 6.8. Pt is alert and oriented. Abdominal Pain Onset Location: reports: unknown (pt denies pain) Pain Radiation: reports: no radiation Quality of Pain: reports: none Severity in ED: reports: moderate Onset/Duration: reports: unsure Timing: reports: still present Activities at Onset: reports: none Exposure to sick contacts?: No Modifying Factors: worse with: movement Associated Symptoms: reports: back/neck pain (back), fatigue, other (hematemesis) Last BM: this morning Dark Stools Present?: reports: black Rectal Bleeding: reports: blood mixed with stool Rectal Pain: reports: none Similar Symptoms Previously?: Yes Recently seen or treated by another doctor?: Yes Review of Systems - Adult - REVIEW OF SYSTEMS - ADULT Constitutional: reports: fatique. denies: chills, fever Eyes: reports: no symptoms reported Ears, Nose, Mouth & Throat: reports: no symptoms reported Cardiovascular: denies: chest pain, palpitations Respiratory: denies: cough, shortness of breath Gastrointestinal: reports: hematemesis. denies: abdominal pain, diarrhea, nausea, vomiting Genitourinary: reports: no symptoms reported Musculoskeletal: reports: back pain. denies: joint pain Integumentary: reports: no symptoms reported Neurological: denies: dizziness/vertigo, seizure Psychiatric: reports: no symptoms reported Endocrine: reports: no symptoms reported Hematologic/Lymphatic: reports: no symptoms reported Allergic/Immunologic: reports: no symptoms reported All Other Systems: Reviewed and Negative Past History - Adult - PAST MEDICAL HISTORY-ADULT Review of Records: reports: Old Records Reviewed, Nursing Assessment Review, Medications Reviewed Major Childhood Illnesses: reports: denies history Cardiovascular: reports: HTN Gastrointestinal: reports: GI bleed, ulcer Genitourinary: reports: kidney disease Musculoskeletal: reports: arthritis - PRIOR SURGERIES/PROCEDURES Surgical/Procedure History: reports: orthopedic (extremity) (finger) - IMMUNIZATION STATUS Childhood Immunizations: See Nurse Assessment Flu Vaccine: See Nurse Assessment - FAMILY HISTORY Family History: reviewed, not pertinent - SOCIAL HISTORY Smoking: quit greater than 1 year Substance Use: none/never Alcohol Use Frequency: occasionally Living Situation: family Physical Exam-General - PHYSICAL EXAM-ADULT Initial Vital Signs Reviewed: Yes - CONSTITUTIONAL General Appearance: appears well, alert, no apparent distress - EYES Eyes: PERRL/EOMI, pink conjunctivae - HEAD, EARS, NOSE, MOUTH & THROAT HENMT: normocephalic/atraumatic, moist mucous membranes, normal ENT inspection - NECK Neck: non-tender, full range of motion - RESPIRATORY Respiratory: chest non-tender, lungs clear, normal breath sounds - CARDIOVASCULAR Cardiovascular: normal peripheral pulses, regular rate, rhythm - GASTROINTESTINAL (ABDOMEN) Abdominal Exam: normal bowel sounds, non tender, soft - GENITOURINARY Male Genitalia: deferred Rectal Exam: normal rectal tone, black stool, prostate enlarged/nodule (+1) Hemoccult Exam: heme negative stool - MUSCULOSKELETAL Back Exam: normal inspection, no CVA tenderness, no vertebral tenderness Extremity: normal range of motion, non-tender, normal gait - SKIN Integumentary: normal color, warm/dry - NEUROLOGIC Neurologic: grossly normal - PSYCHIATRIC Psych/Mental Status: normal mood/affect, normal thought content, normal thought process, oriented x 3 Progress - PLAN OF CARE/RESULTS Progress/Plan/Lab Results: Vital Signs - 8 hr 12/25/18 13:20 Temperature 97.8 F Pulse Rate 65 Respiratory Rate 16 Blood Pressure 95/58 O2 Sat by Pulse Oximetry 100 Orders Category Date Time Status CBC WITH ELECTRONIC DIFF [HEME] Stat Lab 12/25/18 13:31 Uncollected COMPREHENSIVE METABOLIC PANEL [CHEM] Stat Lab 12/25/18 13:31 Uncollected PROTIME WITH INR [COAG] Stat Lab 12/25/18 13:31 Uncollected PTT [COAG] Stat Lab 12/25/18 13:31 Uncollected TYPE & SCREEN [BBK] Stat Lab 12/25/18 13:31 Uncollected 0.9% Sodium Chloride Inj [Ns] 1,000 ml Med 12/25/18 13:45 Active IV 125 mls/hr GI Bleed (possible) Stat Oth 12/25/18 13:31 Ordered Laboratory Tests 12/25/18 12/25/18 12/25/18 13:49 13:49 13:49 WBC 5.13 RBC 2.18 L Hgb 6.6 L Hct 20.5 L MCV 94.0 MCH 30.3 MCHC 32.2 L RDW Std Deviation 12.6 Plt Count 274 MPV 10.2 Neut % (Auto) 55.5 Lymph % (Auto) 22.6 [place] % (Auto) 16.8 H Eos % (Auto) 4.7 Baso % (Auto) 0.4 Neut # (Auto) 2.85 Lymph # (Auto) 1.[address] [place] # (Auto) 0.86 H Eos # (Auto) 0.24 Baso # (Auto) 0.02 PT 15.2 INR 1.11 PTT (Actin FS) 31.2 Sodium 142 Potassium 3.3 L Chloride 105 Carbon Dioxide 23 L Anion Gap 14 BUN 36 H Creatinine 2.8 H Estimated GFR/1.73 m2 27 BUN/Creatinine Ratio 13 Glucose 99 Calculated Osmolality 291 Calcium 8.8 Total Bilirubin 0.52 AST 22 ALT 33 Alkaline Phosphatase 119 Total Protein 6.2 L Albumin 3.2 L Globulin 3.0 Albumin/Globulin Ratio 1.1 Result Diagrams: 12/25/18 13:49 12/25/18 13:49 - CONSULTS/PCP/HOSPITALIST Notification #1 *Consult/PCP/Hospitalist*: JESSICA Melara for hospitalist Time Discussed: 15:53 Reason/Comments: Recurrent GI bleed Consult Disposition: Admit Departure - Departure Date of Disposition Decision: 12/25/18 Time of Disposition Decision: 15:53 DIAGNOSIS: Recurrent gastrointestinal hemorrhage Disposition: ADMITTED INPATIENT 09 Certified Medical Emergency: Emergent Condition: Stable Referrals and Follow-Ups: Karthik Chao MD [Primary Care Provider] - - Critical Care Note This patient required my direct & personal management of CC.: No Attestation - Physician/ INDERJIT Attestation Patient care was provided by Advanced Practice Provider:: No The physician spent face to face time with patient:: Yes Advanced Practice Provider documentation review:: Supervising physician onsite and consulted in the evaluation and care of this patient. The physician did have a face to face encounter with the patient. This chart was documented by the indicated scribe, (Ying Lundberg, [place]) and accurately reflects the services I performed and decisions made by me, Lucy Esquivel MD, as attested by the provider's signature.
[2018-12-25] MEDS ORDERED: TYLENOL PO PRN (16:33)
[2018-12-25] MEDS ORDERED: ZOFRAN IV PRN (16:33)
[2018-12-25] MEDS: NEXIUM IV SCH (16:53)
[2018-12-25] MEDS: SODIUM CHLORIDE 0.9% INJ SCH (16:54)
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
--- NOTE | 2018-12-25 17:58 | Diag Imaging Result Doc PS360 ---
EXAM: CHEST-2 VIEWS 12/25/2018 HISTORY: sob TECHNIQUE: AP upright and lateral chest COMMENT: There is no evidence of acute cardiac or pulmonary disease. The lungs are better expanded than they were on 12/12/2018. IMPRESSION: No acute disease. Electronically signed by Mann Hernández 12/25/2018 5:56 PM
--- NOTE | 2018-12-25 18:53 | Diag Imaging Result Doc PS360 ---
EXAM: CT ABDOMEN/PELVIS W/O CONTRAST 12/25/2018 HISTORY: gib TECHNIQUE: This exam was performed using automated exposure control, adjustment of mA or kV according to patient size, and/or use of iterative reconstruction technique. COMMENT: The current examination is compared with the previous study of 12/12/2018. There is minimal atelectasis in the costophrenic sulci posteriorly which was not the case on the previous study. There is a small amount of pleural fluid bilaterally. This was also not present previously. There is perinephric stranding bilaterally. There are what appear to be hyperdense cysts on both sides. The perinephric stranding is worse but otherwise the appearance of the kidneys has not changed significantly. There is fluid in the right paracolic gutter. This was not present previously. The small bowel is not distended. There is diverticulosis, particularly in the left colon. The appendix is normal in appearance. The urinary bladder is unremarkable. There is some stool in the rectum. There is fluid in the rectovesical pouch. There is disc bulge and spinal stenosis at the L4-5 level. No evidence of acute bony abnormality is present. IMPRESSION: 1. Small pleural effusions and bibasilar atelectasis. 2. Minimal ascites. 3. Worsened perinephric stranding. 4. Diverticulosis coli. Electronically signed by Mann Hernández 12/25/2018 6:51 PM
[2018-12-25] MEDS ORDERED: CARAFATE LIQUID PO SCH (20:00)
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
[2018-12-25] MEDS ORDERED: ICAR-C PO SCH (21:00)
[2018-12-26] MEDS: NEXIUM IV SCH ×2 (03:33→16:01)
[2018-12-26 05:53] LABS: BASO# 0.01 X1000 (0.0-0.2); BASO% 0.2 % (0.0-0.8); EOS# 0.23 X1000 (0.0-0.7); EOS% 4.5 % (0.0-10.0); HEMOGLOBIN 11.4 g/dL (14.0-18.0); LYMPH# 0.82 X1000 (1.2-3.4); LYMPH% 16.1 % (20.5-51.1); MCH 29.6 PG (27-31); MCHC 33.5 g/dL (33-37); MCV 88.3 FL (81-99); MONO# 0.77 X1000 (0.11-0.59); MONO% 15.2 % (1.7-9.3); MPV 10.1 FL (7.4-10.4); NEUT# 3.25 X1000 (1.4-6.5); PLT 250 X1000 (130-400); RBC 3.85 XMIL (4.7-6.1); WBC 5.08 X1000 (4.8-10.8)
[2018-12-26 06:06] LABS: INR 1.16; PROTIME 15.7 Seconds (11.0-16.0); PTT 30.9 Seconds (22.3-41.8)
[2018-12-26 06:22] LABS: ALB/GLOB RATIO 0.8; ALBUMIN 2.7 g/dL (3.5-5.0); CALCIUM 8.3 mg/dL (8.8-10.2); CREATININE 2.1 mg/dL (0.7-1.2); MAGNESIUM 1.6 mg/dL (1.5-2.7); POTASSIUM 3.1 mmol/L (3.5-5.1); TOTAL BILIRUBIN 0.84 mg/dL (0.20-1.00); TOTAL PROTEIN 6.3 g/dL (6.3-8.3)
--- NOTE | 2018-12-26 07:32 | EKG Report ---
Test Performed on : 12/25/2018 5:07:05 PM Test Reason : anemia Blood Pressure : / mmHG Vent. Rate : 062 BPM Atrial Rate : 062 BPM P-R Int : 130 ms QRS Dur : 076 ms QT Int : 466 ms P-R-T Axes : 053 035 090 degrees QTc Int : 472 ms Normal sinus rhythm. Normal ECG When compared with ECG of 13-DEC-2018 12:59, premature ventricular complexes. are no longer present Vent. rate has decreased BY 35 BPM Nonspecific T wave abnormality, improved in Lateral leads Confirmed by Eliel Davenport MD ([id number]) on 12/30/2018 9:41:10 PM
[2018-12-26] MEDS ORDERED: NS + KCL 20 MEQ 1,000 ML IV SCH (07:45)
[2018-12-26 08:07] LABS: HEMATOCRIT 33.4 % (42.0-52.0); HEMOGLOBIN 11.5 g/dL (14.0-18.0)
--- NOTE | 2018-12-26 08:15 | EKG Report ---
Test Performed on : 12/26/2018 08:07:02 AM Test Reason : anemia Blood Pressure : / mmHG Vent. Rate : 068 BPM Atrial Rate : 068 BPM P-R Int : 160 ms QRS Dur : 084 ms QT Int : 456 ms P-R-T Axes : 059 030 078 degrees QTc Int : 484 ms Normal sinus rhythm. Low voltage QRS Prolonged QT Abnormal ECG When compared with ECG of 25-DEC-2018 17:07, (Unconfirmed) No significant change was found Confirmed by Eliel Davenport MD ([id number]) on 12/30/2018 9:43:05 PM
[2018-12-26] MEDS ORDERED: ICAR-C PO SCH (09:00)
--- NOTE | 2018-12-26 09:32 | PROGRESS NOTE ---
DATE: 12/26/2018 SUBJECTIVE: This patient is lying comfortably in bed. He is not having symptoms, no abdominal pain, no dizziness. He was transfused, and the hemoglobin improved from 6.6 to 11.5. He is n.p.o. because he will have a new endoscopic exam today. OBJECTIVE: Vital Signs: Temperature 98.3 degrees, pulse 65, respiratory rate 15, blood pressure 175/72, oxygen saturation 100% on room air. HEENT: Head normocephalic, no trauma. PERRLA. Neck: Supple. No JVD. No masses. Central trachea. Chest: Clear to auscultation. No wheezing. No rales. Abdomen: Soft, nontender, nondistended. No hepatosplenomegaly. Extremities: No edema, no clubbing, no cyanosis. Neurological examination: The patient is alert and oriented x3. No focal deficits. LABORATORY: WBC 5.0, hemoglobin 11.5, hematocrit 33.4, platelets 250. Sodium 143, potassium 3.1, chloride 108, bicarbonate 21. BUN 29, creatinine 2.1, glucose 87, calcium 8.3, magnesium 1.6. AST 19, ALT 26, alkaline phosphatase 109, albumin 2.7. ASSESSMENT AND PLAN: 1. Recent duodenitis with duodenal ulcer that was bleeding. This patient will have an esophagogastroduodenoscopy done today. Gastroenterology Department on board. We will follow recommendations. 2. Iron deficiency anemia. We will continue with iron supplementation. 3. Hypertension. He is getting intravenous fluids. His blood pressure medication has been on hold because he is on nothing by mouth and going for a procedure today. Will restart his medications after the procedure. 4. Chronic kidney disease stage III, stable. 5. Arthritis. We will monitor. 6. Deep vein thrombosis prophylaxis with sequential compression devices. cc: Mauro Keita MD
[2018-12-26] MEDS ORDERED: DIPRIVAN 1% ONE (11:14)
[2018-12-26] MEDS ORDERED: XYLOCAINE-MPF 2% ONE (11:14)
[2018-12-26] MEDS ORDERED: LOPRESSOR PO SCH (14:00)
[2018-12-26] MEDS ORDERED: CATAPRES PO SCH (14:00)
[2018-12-26] MEDS ORDERED: CARAFATE LIQUID PO SCH (14:00)
--- NOTE | 2018-12-26 14:18 | OPERATIVE NOTE ---
PROCEDURE DATE: 12/26/2018 PROCEDURE: Esophagogastroduodenoscopy with hemostasis of the duodenal ulcer. PREOPERATIVE DIAGNOSIS: GI bleed. POSTOPERATIVE DIAGNOSIS: Duodenal ulcer with small visible vessel cauterized. No active bleeding. DESCRIPTION OF PROCEDURE: After informed consent and adequate intravenous sedation, the scope introduced in the esophagus. No varices. Stomach is without blood. In the bulb, there is a 5 mm ulcer with a small visible vessel. There is no active bleeding. Duodenum is free of any telangiectasias. At this point, a vessel was immediately cauterized. Then thorough lavage did not reveal any further bleeding. The scope was withdrawn. RECOMMENDATIONS: 1. PPI. 2. Reduce alcohol consumption. 3. Follow up in our office in 3 weeks. cc: Gifty Pritchard MD
[2018-12-26] MEDS ORDERED: PLENDIL PO ONE ×2 (15:13→16:00)
[2018-12-26] MEDS ORDERED: KLOR-CON PO ONE (15:15)
[2018-12-26] MEDS: SODIUM CHLORIDE 0.9% INJ SCH (16:02)
[2018-12-26 16:12] LABS: HEMATOCRIT 39.3 % (42.0-52.0); HEMOGLOBIN 13.3 g/dL (14.0-18.0)
[2018-12-26] MEDS ORDERED: APRESOLINE IV ONE (16:33)
[2018-12-26 18:00] VITALS: BP 164/78
--- NOTE | 2018-12-26 20:18 | DISCHARGE SUMMARY ---
ADMISSION DATE: 12/25/2018 DISCHARGE DATE: 12/26/2018 DISCHARGE DIAGNOSES: 1. Iron deficiency anemia with recent drop in his hemoglobin to 6.6. He is status post 2 packed red blood cells. 2. Recent duodenitis with duodenal ulcer in the bulb measuring 1 to 2 cm with a visible vessel that was treated with epinephrine. Now this patient just has a new EGD that showed the duodenal ulcer with a small vessel that has been cauterized, and no active bleeding. 3. Hypertension. 4. Chronic kidney disease stage 3. 5. Arthritis. HOSPITAL COURSE: This is 73-year-old male with a medical history of most recently been admitted toward the end of November where he was found to have a visible vessel in the duodenal bulb, duodenal ulcer, and duodenitis. This was cauterized and injected with epinephrine. Also he has a medical history of CKD, hypertension, and antritis. He has been admitted yesterday, 12/25/2018, due to black stools that never truly went away since his discharge. He was seen by his primary care provider who did some laboratory, and apparently he had a low blood count and was called to come here. Hemoglobin and hematocrit here where were 6.6 and 20.5. He received 2 units of PRBCs, and the hemoglobin improved significantly to 11.4 and hematocrit to 34. He was scoped again by Dr. Pritchard, who found a duodenal ulcer with a small visible vessel that had been cauterized, but no active bleeding. He recommended to continue with PPIs, reduce alcohol consumption, and follow up in the office in 3 weeks. This patient is feeling good. Actually he never had symptoms from these. He denies dizziness. He denies shortness of breath or chest pain. No lightheadedness, no headache. After the procedure, the patient's blood pressure was elevated, but we put him back on his home medications, including clonidine, metoprolol and felodipine. The gastroenterology department has recommended to send this patient home once the blood pressure is better. We will work on that. He seems to be stable. He is tolerating p.o. He is not having pain. He is asymptomatic, and no problem with ambulation. OBJECTIVE: Vital Signs: At this moment, temperature is 97.6, pulse 65, respiratory rate 15, blood pressure 174/75, oxygen saturation 98% on room air. HEENT: Head normocephalic. No trauma. PERRLA. Neck: Supple. No JVD. No masses. Central trachea. Chest: Clear to auscultation. No wheezing. No rales. Abdomen: Soft, nontender, nondistended. No hepatosplenomegaly. Extremities: No edema, no clubbing, no cyanosis. Neurological: The patient is alert and oriented x3. No focal deficits. LABORATORY: WBC 5.0, hemoglobin 11.5, hematocrit 33.4, platelets 250. Sodium 143, potassium 3.1, chloride 108, bicarbonate 21, BUN 29, creatinine 2.1, glucose 87, calcium 8.3, albumin 2.7. DISCHARGE MEDICATIONS: Clonidine 1 mg p.o. b.i.d., felodipine 5 mg p.o. daily, Icar C, 1 tab p.o. daily, metoprolol 25 mg p.o. b.i.d., Omeprazole 40 mg p.o. b.i.d., and Carafate 1 gram p.o. every 6 hours. Time discharging this patient 35 minutes. cc: Mauro Keita MD
[2018-12-27] MEDS ORDERED: PLENDIL PO SCH (09:00)
== END 2018-12-26 17:58 | disposition home or self-care (01) | DRG 378 ==
LOC: ED 13:06 → INTOOBSV 16:38 → OBSVTOIN 16:38 → 3S 16:38
PROVIDERS: ATTEND Internal Medicine
PROC: EN.HEAT (2018-12-26 11:41)
CPT/HCPCS: 36430; 71020; 71046; 74176; 80053; 82270; 83735; 85014; 85018; 85025; 85610; 85730; 86850; 86900; 86901; 86920; 93005; 93010; 94760; 94799; 96361; 96374; 99285; A9270; J0360; J3480; J7030; P9016